=== PATIENT | female | born 1965 | race Caucasian/White ===

== ENCOUNTER 2017-09-17 18:08 | Emergency (ER) | payer SELFPAY ==
[2017-09-17 18:09] VITALS: BP 104/53; PULSE 100; RESP 16; TEMP 97.9; O2SAT 98
--- NOTE | 2017-09-17 19:35 | PD ---
HPI Chief Complaint: Skin Problem Time Seen by Provider: 18:53 Travel History International Travel<30 days: No Contact w/Intl Traveler<30days: No Traveled to known affect area: No History of Present Illness HPI 51 YO F with PMH of psoriasis presents to the ED for evaluation of 3 week history of pruritic rash on the bilateral feet. Patient states that the lesions were initially pustular but now have turned to peeling, "like blisters" . She denies fevers, chills, nausea ,vomiting, limitations to ROM of the extremities, history of similar rash. Denies homelessness. She states that she "walks a lot, sometime 6 or 7 miles." She complains of edema in the lower legs. No treatment attempted at home. PFSH Past Medical History Asthma: Yes Hypertension: Yes Tetanus Vaccination: < 5 Years ?: Not Menopausal: Yes Miscarriage: 2 : 2 Ectopic : Yes Past Surgical History Section: Yes (x2) Hysterectomy: Yes (partial) Tonsillectomy: Yes Social History Alcohol Use: Yes (occu) Tobacco Use: Yes (1/2 ppd) Substance Use: No Allergies-Medications (Allergen,Severity, Reaction): Coded Allergies: acetaminophen (Verified Allergy, Unknown, stomach ache, 09/17/17) Reported Meds & Prescriptions Reported Meds & Active Scripts Active Fluocinolone Topical 0.025% Oint 1 Applic TOPICAL TID 14 Days Review of Systems Except as stated in HPI: all other systems reviewed are Neg Physical Exam Narrative GENERAL: Well-nourished, well-developed white female in no acute distress. Smells of alcohol. SKIN: Focused skin assessment warm/dry. Plaque psoriasis noted of bilateral elbows. Bilateral feet with multiple subcentimeter open vesicles without drainage. No interdigital desquamation noted. No erythema, edema, discharge noted. HEAD: Normocephalic. EYES: No scleral icterus. No injection or drainage. NECK: Supple, trachea midline. No JVD or lymphadenopathy. CARDIOVASCULAR: Regular rate and rhythm without murmurs, gallops, or rubs. RESPIRATORY: Breath sounds equal bilaterally. No accessory muscle use. GASTROINTESTINAL: Abdomen soft, non-tender, nondistended. MUSCULOSKELETAL: No cyanosis. Mild edema to the midshin bilaterally. Patient retains full, active, painless ROM bilateral lower extremities. BACK: Nontender without obvious deformity. No CVA tenderness. Data Data Last Documented VS Vital Signs Date Time Temp Pulse Resp B/P (MAP) Pulse Ox O2 Delivery O2 Flow Rate FiO2 09/17/17 19:43 09/17/17 18:09 97.9 100 16 98 Orders Orders Ed Discharge Order (09/17/17 19:37) MDM Medical Decision Making Medical Screen Exam Complete: Yes Emergency Medical Condition: Yes Differential Diagnosis Psoriasis versus tinea pedis versus eczema versus other Narrative Course 51 YO F with PMH of psoriasis presents to the ED for evaluation of 3 week history of pruritic rash on the bilateral feet. Patient states that the lesions were initially pustular but now have turned to peeling, "like blisters" . She denies fevers, chills, nausea ,vomiting, limitations to ROM of the extremities, history of similar rash. Denies homelessness. She states that she "walks a lot, sometime 6 or 7 miles." She complains of edema in the lower legs. Vitals reviewed. Physical exam reveals a disheveled white female, smelling strongly of alcohol. She does have plaque psoriasis on the bilateral elbows and the skin of the feet bears punctate areas of peeling and flaking. There is no interdigital desquamation, no edema, no lymphatic streaking, no induration or fluctuance noted. There is also edema to the mid smith bilaterally. She is prescribed a course of steroids, instructed to follow-up with the agricultural systems specialist. She is stable and discharged home. When the nurse attempted to discharge the patient became angry, stated that she is seeking treatment for pain, began to hyperventilate. The patient had a friend in the room who attempted to calm her down and she was escorted out by this friend and ED security. Diagnosis Primary Impression: Rash in adult Referrals: [facility] Additional Instructions: Rest, hydrate. Keep affected skin clean and dry. Change socks often. Keep the elevated as possible. Avoid hot showers as this can worsen itching. Apply steroid cream as prescribed. Follow-up with the agricultural systems specialist. Return to the ED for any urgent or emergent medical condition. Med/Other Pt SpecificInfo: Prescription(s) given Scripts Fluocinolone Topical (Fluocinolone Topical) 0.025% Oint 1 APPLIC TOPICAL TID for 14 Days, #15 GM 0 Refills Prov: Ángel Brown MD 09/17/17 Disposition: 01 DISCHARGE HOME Condition: Stable Katelyn Wells Sep 17, 2017 19:35
[2017-09-17] MEDS ORDERED: FLUO0.022 TOPICAL (19:36)
== END 2017-09-17 20:05 | disposition home or self-care (01) ==
LOC: NEPK 18:08
DX: R21 Rash and other nonspecific skin eruption (principal); J45.909 Unspecified asthma, uncomplicated; I10 Essential (primary) hypertension; F17.200 Nicotine dependence, unspecified, uncomplicated; Z88.6 Allergy status to analgesic agent
CPT/HCPCS: 99283

== ENCOUNTER 2017-11-30 17:53 | Emergency (ER) | payer MEDICARE ==
[~2017-11-30 17:53] MED LIST: FLUO0.022 TOPICAL
[2017-11-30 17:55] VITALS: BP 159/94; PULSE 84; RESP 14; TEMP 97.9; O2SAT 99
[2017-11-30] MEDS ORDERED: CLOT1CRE8 TOPICAL (19:54)
--- NOTE | 2017-11-30 19:58 | PD ---
HPI Chief Complaint: Skin Problem Time Seen by Provider: 19:13 Travel History International Travel<30 days: No Contact w/Intl Traveler<30days: No Traveled to known affect area: No History of Present Illness HPI The patient was seen and examined in the presence of the nurse. This patient complains of itchy skin rash on both feet. It has been there for 1-2 months. She has not tried to do anything for treatment. She was told by someone it was [id number]-[id number]-din-mouth disease. She does not complain of any oral lesions. She is a heavy alcohol drinker. She admits to drinking today. Symptom severity is moderate PFSH Past Medical History Asthma: Yes Cirrhosis: Yes Hepatitis: Yes Hypertension: Yes ?: Not Menopausal: Yes Miscarriage: 2 : 2 Ectopic : Yes Past Surgical History Section: Yes (x2) Hysterectomy: Yes (partial) Tonsillectomy: Yes Social History Alcohol Use: Yes (occu) Tobacco Use: Yes (1/2 ppd) Substance Use: No Allergies-Medications (Allergen,Severity, Reaction): Coded Allergies: acetaminophen (Verified Allergy, Unknown, stomach ache, 11/30/17) Reported Meds & Prescriptions Reported Meds & Active Scripts Active Clotrimazole AF Topical (Clotrimazole) 1% Cream 1 Applic TOPICAL BID Fluocinolone Topical 0.025% Oint 1 Applic TOPICAL TID 14 Days Review of Systems General / Constitutional: No: Fever HENT: No: Headaches Cardiovascular: No: Chest Pain or Discomfort Physical Exam Narrative GASTROINTESTINAL: Abdomen soft, non-tender, nondistended. Positive bowel sounds. No hepato-splenomegaly, or palpable masses. No guarding. RESPIRATORY: Respiratory effort unlabored, no retractions or use of accessory muscles. Breath sounds are clear and symmetric. Skin: Patient has a rash on the soles of both feet in a moccasin distribution. I suspect fungal origin. No vesicles or abscess or drainage Data Data Last Documented VS Vital Signs Date Time Temp Pulse Resp B/P (MAP) Pulse Ox O2 Delivery O2 Flow Rate FiO2 11/30/17 17:55 97.9 84 14 159/94 (115) 99 Room Air MDM Medical Decision Making Medical Screen Exam Complete: Yes Emergency Medical Condition: Yes Medical Record Reviewed: Yes Differential Diagnosis Dermatitis, fungal rash, allergic reaction Narrative Course I have reviewed the patient's electronic medical record. I prescribed her some antifungal cream to apply twice daily to the feet Advised to keep them clean and dry his possible Patient also has history of psoriasis but this appears to be something different Diagnosis Primary Impression: Chronic dermatitis of feet Additional Impression: Alcoholism Additional Instructions: The patient was advised to follow up with their physician and return if they worsen. Med/Other Pt SpecificInfo: Prescription(s) given Scripts Clotrimazole Topical (Clotrimazole AF Topical) 1% Cream 1 APPLIC TOPICAL BID for Infection, #15 GM 0 Refills Prov: Aung Rodriguez MD 11/30/17 Disposition: DISCHARGE HOME Condition: Stable Aung Rodriguez MD Nov 30, 2017 19:58
== END 2017-11-30 20:02 | disposition home or self-care (01) ==
LOC: NEPD 17:53
DX: L30.9 Dermatitis, unspecified (principal); F10.20 Alcohol dependence, uncomplicated
CPT/HCPCS: 99282